=== PATIENT | female | born 1985 | race American Indian/Alaskan Native ===

== ENCOUNTER 2021-10-31 13:42 | Emergency (ER) | payer MEDICAID ==
--- NOTE | 2021-10-31 15:18 | Emergency Department Report ---
ED Dysuria HPI - HPI Chief Complaint: Urogenital-Female Stated Complaint: POSSIBLE UTI Time Seen by Provider: 10/31/21 15:15 Duration: 3 Days Location of Discomfort: Urethra (dysuria) Severity: Mild Symptoms: Dysuria: Yes, Frequency: No, Suprapubic Pain: No, Flank Pain: No, Fever: No, Hematuria: No, Abdominal Pain: No, Previous UTI's: Yes Other History: 36 yo comes to ER with dysuria. No abd pain. No flank pain. No fever or chills. No vag d/c. LMP - currently ED Review of Systems ROS: Stated complaint: POSSIBLE UTI Other details as noted in HPI Comment: All other systems reviewed and negative ED Past Medical Hx - Past Medical History Previous Medical History?: No - Surgical History Past Surgical History?: No - Family History Family history: no significant - Social History Smoking Status: Never Smoker Substance Use Type: None - Medications Home Medications: Home Medications Medication Instructions Recorded Confirmed Last Taken Type Sulfamethoxazole/Trimethoprim 1 each PO BID #10 tablet 10/31/21 Unknown Rx [Bactrim DS TAB] Dysuria Exam - Exam General: Vital signs noted. No distress. Alert and acting appropriately. Exam: Yes Moist Mucous Membranes, No CVA Tenderness, No Abdominal Tenderness, No Rigidity or Guarding ED Course Vital Signs 10/31/21 15:12 Temperature 98.3 F Pulse Rate 72 Respiratory 18 Rate Blood Pressure 170/109 [Right] O2 Sat by Pulse 100 Oximetry ED Medical Decision Making - Medical Decision Making Vital Signs (72 hours) 10/31/21 15:12 Temperature 98.3 F Pulse Rate 72 Respiratory 18 Rate Blood Pressure 170/109 [Right] O2 Sat by Pulse 100 Oximetry Lab Results 10/31/21 Range/Units Unknown Urine Color Red (Yellow) Urine Turbidity Slightly-cloudy (Clear) Urine pH 6.0 (5.0-7.0) Ur Specific [place] 1.009 (1.003-1.030) Urine Protein 100 mg/dl (Negative) mg/dL Urine Glucose (UA) Neg (Negative) mg/dL Urine Ketones Neg (Negative) mg/dL Urine Blood Lg (Negative) Urine Nitrite Neg (Negative) Urine Bilirubin Neg (Negative) Urine Urobilinogen < 2.0 (<2.0) mg/dL Ur Leukocyte Esterase Lg (Negative) Urine WBC (Auto) 170.0 H (0.0-6.0) /HPF Urine RBC (Auto) 127.0 (0.0-6.0) /HPF U Epithel Cells (Auto) 2.0 (0-13.0) /HPF Urine Bacteria (Auto) 1+ (Negative) /HPF Urine Mucus Few /HPF Urine HCG, Qual Negative (Negative) ua noted rocephin IM x 1 culture pending VS normal no abd pain no n/v/d no fever or chills no back pain taking po ambulatory and in nad pt being d/c home with bactrum and outpt follow up with pcp. She verbalizes understanding of plan of care. - Differential Diagnosis uti/ro preg/ro pylo Critical care attestation.: If time is entered above; I have spent that time in minutes in the direct care of this critically ill patient, excluding procedure time. ED Disposition Clinical Impression: Elevated blood pressure reading UTI (urinary tract infection) Qualifiers: Urinary tract infection type: site unspecified Disposition: 01 HOME / SELF CARE / HOMELESS Is pt being admited?: No Does the pt Need Aspirin: No Condition: Stable Instructions: Urinary Tract Infection, Adult, [id number] Additional Instructions: meds as ordered follow up with pcp next week to be sure this improves motrin or tylenol for pain stay well hydrated with water monitor your blood pressure and make sure it comes down- was elevated today Prescriptions: Sulfamethoxazole/Trimethoprim [Bactrim DS TAB] 1 each PO BID #10 tablet Referrals: LARISSA STANTON MD [Staff Physician] - 3-5 Days WALT NOGUERA MD [Staff Physician] - 3-5 Days Time of Disposition: 15:23
[2021-10-31] MEDS ORDERED: LIDOCAINE-MPF (1%) 10 MG/1 ML VIAL 5 ML INFILTRATI ONE (15:23)
[2021-10-31 15:52] LABS: Bacteria,Urine 1+ /HPF (Negative); Bilirubin,Urine NEG (Negative); Blood,Urine LG (Negative); Color,Urine Red (Yellow); Mucus,Urine FEW /HPF; Urobilinogen,Urine < 2.0 mg/dL (<2.0)
[2021-10-31 15:54] LABS: HCG Qualitative,Urine Negative (Negative)
[2021-10-31 16:10] VITALS: BP 142/78
== END 2021-10-31 16:10 | disposition home or self-care (01) ==
LOC: ED 13:42
DX: N39.0 Urinary tract infection, site not specified (principal); I10 Essential (primary) hypertension
CPT/HCPCS: 81001; 81025; 87076; 87086; 87186; 96372; 99283; J0696; J3490